=== PATIENT | female | born 1945 | race Caucasian/White ===

== ENCOUNTER 2020-01-25 19:59 | Observation (INO) | payer MEDICARE, OTHER ==
[~2020-01-25] VITALS: Ht 165.1 cm; Wt 62.1 kg
[2020-01-25 20:21] LABS: BASOPHILS % 0.6 % (0.0-1.0); EOSINOPHILS # (AUTO) 0.1 (0.0-0.4); EOSINOPHILS % 1.2 % (0.0-6.0); HEMATOCRIT 48.5 % (34.2-44.1); LYMPHOCYTES # (AUTO) 1.6 (1.0-3.2); LYMPHOCYTES % 25.3 % (18.0-39.1); MEAN CORPUSCULAR HEMOGLOBIN 30.9 pg (28-32); MEAN CORPUSCULAR VOLUME 93.6 fL (81-99); MONOCYTES # (AUTO) 0.6 (0.2-0.8); MONOCYTES % 9.5 % (4.4-11.3); NEUTROPHILS # (AUTO) 4.1 (2.1-6.9); NEUTROPHILS % 63.4 % (38.7-80.0); PLATELET COUNT 228 x10e3/uL (140-360); RED BLOOD COUNT 5.18 x10e6/uL (3.6-5.1)
[2020-01-25 20:35] LABS: ALBUMIN 4.3 g/dL (3.5-5.0); ALBUMIN/GLOBULIN RATIO 1.3 (0.8-2.0); ANION GAP 14.1 mmol/L (8-16); CREATININE, SERUM 1.18 mg/dL (0.57-1.11); POTASSIUM 4.1 mmol/L (3.5-5.1)
[2020-01-25 20:42] LABS: CREATINE KINASE MB 1.7 ng/mL (0-5.0)
--- NOTE | 2020-01-25 20:54 | Diagnostic Imaging Report ---
EXAMINATION: CHEST 2 VIEWS INDICATION: ^PALPITATIONS ^20200125 ^2029 COMPARISON: None FINDINGS: TUBES and LINES: None. LUNGS: Normal lung volumes. Nodular opacities measuring up to 8 mm in the left midlung, may represent pulmonary nodules. No additional airspace opacity or consolidation. PLEURA: No pleural effusion or pneumothorax. HEART AND MEDIASTINUM: The cardiomediastinal silhouette is unremarkable. BONES AND SOFT TISSUES: No acute osseous lesion. Soft tissues are unremarkable. UPPER ABDOMEN: No free air under the diaphragm. IMPRESSION: 1. Subcentimeter nodular opacities in the left midlung, may represent pulmonary nodules. Recommend nonemergent chest CT for further evaluation. 2. No additional cardiopulmonary abnormalities. Signed by: Dr. Toni Richardson M.D. on 01/25/2020 8:51 PM
--- NOTE | 2020-01-25 20:57 | Emergency Department Note ---
History of Present Illnes History of Present Illness Chief Complaint: General Medicine Complaints History of Present Illness This is a 74 year old female . Chief Complaint Comment 74 Y/O FEMALE PT AAOX3 REPORTS PALPITATIONS AND PAIN TO LUE SINCE APPROX [id number] TODAY, EKG PERFORMED AND GIVEN TO ER MD FOR REVIEW; RESP ARE EVEN AND UNLABORED, O2 SAT RA 99%; SKIN WARM, DRY, COLOR WNL FOR PT; 20 GAUGE IV CATH PLACED TO PTS LEFT AC, BLOOD OBTAINED FOR LAB ANALYSIS; ER MD TO TRIAGE FOR INITIAL EVAL Historian: Patient Duration (how long): day(s) Past Medical/Family History Physician Review I have reviewed the patient's past medical and family history. Any updates have been documented here. Past Medical History Recent Fever: No Clinical Suspicion of Infectio: No New/Unexplained Change in Ment: No Past Medical History: Hypertension, Chronic Back Pain, Osteoarthritis Past Surgical History: Hysterectomy, Cataract Removal Social History Smoking Cessation: Never Smoker Counseling Performed: No Alcohol Use: None Any Illegal Drug Use: No Physically hurt or threatened: No Other Any Pre-Existing Lines (PICC,: No Review of Systems Review of Systems Constitutional: Reports no symptoms EENTM: Reports no symptoms Cardiovascular: Reports as per HPI, Reports chest pain Respiratory: Reports no symptoms Gastrointestinal: Reports no symptoms Genitourinary: Reports no symptoms Musculoskeletal: Reports no symptoms Integumentary: Reports no symptoms Neurological: Reports no symptoms Psychological: Reports no symptoms Endocrine: Reports no symptoms Hematological/Lymphatic: Reports no symptoms Physical Exam Related Data Allergies: Coded Allergies: No Known Allergies (Unverified , 01/25/20) Triage Vital Signs Vital Signs Date Time Temp Pulse Resp B/P (MAP) Pulse Ox O2 Delivery O2 Flow Rate FiO2 01/25/20 20:02 98.1 80 18 133/95 99 Room Air Vital signs reviewed: Yes Physical Exam CONSTITUTIONAL Constitutional: Present well-developed, Present well-nourished HENT HENT: Present normocephalic, Present atraumatic, Present oropharynx clear/moist, Present nose normal HENT L/R: Present left ext ear normal, Present right ext ear normal EYES Eyes: Reports PERRL, Reports conjunctivae normal NECK Neck: Present ROM normal PULMONARY Pulmonary: Present effort normal, Present breath sounds normal CARDIOVASCULAR Cardiovascular: Present regular rhythm, Present heart sounds normal, Present capillary refill normal, Present normal rate GASTROINTESTINAL Abdominal: Present soft, Present nontender, Present bowel sounds normal GENITOURINARY Genitourinary: Present exam deferred SKIN Skin: Present warm, Present dry MUSCULOSKELETAL Musculoskeletal: Present ROM normal NEUROLOGICAL Neurological: Present alert, Present oriented x 3, Present no gross motor or sensory deficits PSYCHOLOGICAL Psychological: Present mood/affect normal, Present judgement normal Results Laboratory Result Diagram: 01/25/202008 Laboratory Laboratory Tests Test 01/25/20 20:09 White Blood Count 6.41 x10e3/uL (4.8-10.8) Red Blood Count 5.18 x10e6/uL (3.6-5.1) Hemoglobin 16.0 g/dL (12.0-16.0) Hematocrit 48.5 % (34.2-44.1) Mean Corpuscular Volume 93.6 fL (81-99) Mean Corpuscular Hemoglobin 30.9 pg (28-32) Mean Corpuscular Hemoglobin Concent 33.0 g/dL (31-35) Red Cell Distribution Width 12.0 % (11.7-14.4) Platelet Count 228 x10e3/uL (140-360) Neutrophils (%) (Auto) 63.4 % (38.7-80.0) Lymphocytes (%) (Auto) 25.3 % (18.0-39.1) Monocytes (%) (Auto) 9.5 % (4.4-11.3) Eosinophils (%) (Auto) 1.2 % (0.0-6.0) Basophils (%) (Auto) 0.6 % (0.0-1.0) Neutrophils # (Auto) 4.1 (2.1-6.9) Lymphocytes # (Auto) 1.6 (1.0-3.2) Monocytes # (Auto) 0.6 (0.2-0.8) Eosinophils # (Auto) 0.1 (0.0-0.4) Basophils # (Auto) 0.0 (0.0-0.1) Absolute Immature Granulocyte (auto 0 x10e3/uL (0-0.1) Lab results reviewed: Yes Imaging Imaging results reviewed: Yes Procedures 12 Lead ECG Interpretation ECG Interpretation : ECG: ECG 2 Prior ECG tracings: reviewed Rhythm: sinus rhythm Ectopy: PVC's Rate: normal QRS axis: normal ST segments normal: Yes Clinical Impression: normal ECG Assessment & Plan Medical Decision Making MDM 74-year-old female arrives the ED with atypical chest pain for several days. Patient with intermediate risk factors for ACS. Patient admitted to the hospital for serial cardiac monitoring and telemetry observation. The patient presented with chest pain of uncertain etiology. Based on their history, lab analysis, EKG (which showed no evidence of ischemia or infarction), and imaging, in addition to the patient's physical exam, I see no evidence at this time for a malignant etiology for the patient's chest pain. There is no acute evidence for pulmonary embolus, acute myocardial infarction, pneumothorax, esophageal rupture, cardiac tamponade, thoracic artery dissection, or any other emergent cardiac, pulmonary or aortic pathology at this time. [Based on the nature and long duration of the patient's pain, paucity of EKG findings, and normal cardiac enzymatic blood analysis, acute coronary syndrome is a possibility. Ratio with the following cardiac risk factors: (Age>65, CAD risk factors -- family history of CAD, hypertension, hypercholesterolemia, diabetes, known CAD as defined by >50% stenosis, aspirin use in the past 7 days, severe angina having more than 2 episodes in the past 24 hours This patient may require cardiac stress testing on an outpatient basis and arrangements for this may be made during their follow-up visit with their primary care physician. The patient understands that at this time there is no evidence for a more malignant underlying process, but the patient also understands that early in the process of an illness, an emergency department workup can be falsely reassuring. Routine discharge counseling was given to the patient and the patient understands that worsening, changing, or persistent symptoms should prompt an immediate call or follow up with their primary physician or the emergency department immediately. The importance of close follow up was also discussed with the patient. Assessment & Plan Final Impression: (1) Chest pain Depart Disposition: HOME, SELF-CARE Last Vital Signs Date Time Temp Pulse Resp B/P (MAP) Pulse Ox O2 Delivery O2 Flow Rate FiO2 01/25/20 20:02 98.1 80 18 133/95 99 Room Air Home Meds Reported Medications Simvastatin (SIMVASTATIN) 20 Mg Tablet, PO HS, EA 01/26/20 Losartan Potassium (LOSARTAN POTASSIUM) 25 Mg Tablet, 50 MG PO DAILY 01/26/20 [Genteal Gel] No Conflict Check, OU HS 01/26/20 [Systane ] No Conflict Check, 1 DROP OU PRN 01/26/20 Cyclosporine (RESTASIS) 1 Each Droperette, 1 DROP OU BID 01/26/20 Loteprednol Etabonate (LOTEMAX) 5 Ml Susp, 1 DROP OU BID, ML 01/26/20 Brimonidine Tartrate (COMBIGAN EYE DROPS) 5 Ml Drpette, 1 DROP OU DAILY 01/26/20 SABINO SINGH, Jan 25, 2020 20:53
[2020-01-25 21:08] LABS: BILIRUBIN,URINE NEGATIVE (NEGATIVE); CLARITY,URINE CLEAR (CLEAR); COLOR,URINE YELLOW (YELLOW); KETONES,URINE NEGATIVE (NEGATIVE); LEUKOCYTE ESTERASE ,URINE SMALL (NEGATIVE); NITRITE,URINE NEGATIVE (NEGATIVE); PROTEIN,URINE DIPSTICK NEGATIVE (NEGATIVE); URINE UROBILINOGEN 0.2 mg/dL (0.2 - 1)
--- OUTSIDE RECORDS SUMMARY | 2020-01-25 21:09 | XMS REPORT | Continuity of Care Document ---
Author Author [facility] Organization [facility] Address [address] [place] [phone] Phone Unavailable Care Team Providers Care Cash Processing Specialist Name Role Phone Wiliam SINGH Attcale[employer] Unavailable Problems This patient has no known problems. Allergies, Adverse Reactions, Alerts This patient has no known allergies or adverse reactions. Medications This patient has no known medications. Procedures This patient has no known procedures. Results Test Description Test Time Test Comments Results Result Comments Source CHEST 2 VIEWS 2020-01-25 20:49:00 [facility] CENTERName: ASHLEY SOLO : 1945 Sex: F [facility] [address] [place], [place] [address] Patient Name: ASHLEY SOLO MR #: [id number] : 1945 Age/Sex: 74/F Req #: [id number] [facility] Physician: Ordered by: SABINO SINGH DO Report #: [id number] Location: ER Room/Bed: Procedure: [id number] DX/CHEST 2 VIEWS Exam Date: 01/25/20 Exam Time: 2029 REPORT STATUS: Signed EXAMINATION: CHEST 2 VIEWS INDICATION: PALPITATIONS [id number] COMPARISON: None FINDINGS: TUBES and LINES: None. LUNGS: Normal lung volumes. Nodular opacities measuring up to 8 mm in the left midlung, may represent pulmonary nodules. No additional airspace opacity or consolidation. PLEURA: No pleural effusion or pneumothorax. HEART AND MEDIASTINUM: The cardiomediastinal silhouette is unremarkable. BONES AND SOFT TISSUES: No acute osseous lesion. Soft tissues are unremarkable. UPPER ABDOMEN: No free air under the diaphragm. IMPRESSION: 1. Subcentimeter nodular opacities in the left midlung, may represent pulmonary nodules. Recommend nonemergent chest CT for further evaluation. 2. No additional cardiopulmonary abnormalities. Signed by: Dr. Jacky Richardson M.D. on 01/25/2020 8:51 PM Dictated By: JACKY RICHARDSON MD 50 Transcribed By: CHELA on 01/25/202050 COPY TO: SABINO SINGH DO
[2020-01-25 21:22] LABS: WBC,URINE (MAN) 0-5 /HPF (0-5)
--- OUTSIDE RECORDS SUMMARY | 2020-01-25 22:02 | XMS REPORT | Continuity of Care Document ---
Author Author [facility] Organization [facility] Address [address] [place] [phone] Phone Unavailable Care Team Providers Care Band Maker Name Role Phone Wiliam SINGH Attcale[employer] Unavailable Problems This patient has no known problems. Allergies, Adverse Reactions, Alerts This patient has no known allergies or adverse reactions. Medications This patient has no known medications. Procedures This patient has no known procedures. Results Test Description Test Time Test Comments Results Result Comments Source CHEST 2 VIEWS 2020-01-25 20:49:00 [facility] CENTER[facility]: ASHLEY SOLO : 1945 Sex: F [facility] [address] [place], [place] [address] Patient Name: ASHLEY SOLO MR #: [id number] : 1945 Age/Sex: 74/F Req #: [id number] [facility] Physician: Ordered by: SABINO SINGH DO Report #: [id number] Location: ER Room/Bed: Procedure: [id number] DX/CHEST 2 VIEWS Exam Date: 01/25/20 Exam [...]
[2020-01-26] VITALS (7 sets, daily range): BP systolic 121–148; BP diastolic 63–79
[2020-01-26] MEDS ORDERED: SYSTANE OU (02:05)
[2020-01-26] MEDS ORDERED: COMBIGAN EYE DRO5 ML OU (02:05)
[2020-01-26] MEDS ORDERED: LOSARTAN POTASS25 MG PO (02:05)
[2020-01-26] MEDS ORDERED: RESTASIS1 EACH OU (02:05)
[2020-01-26] MEDS ORDERED: SIMVASTATIN20 MG PO (02:05)
[2020-01-26] MEDS ORDERED: LOTEMAX5 ML OU (02:05)
[2020-01-26] MEDS ORDERED: GENTEAL GEL OU (02:05)
--- NOTE | 2020-01-26 06:55 | NUR ---
REPORT GIVEN TO DAYSHIFT NURSE. ALERT AND ORIENTED. RESTING IN BED. NO SIGNS OF IV INFILTRATION. BED LOCKED AND LOW POSITION. CALL LIGHT WITHIN REACH.
--- NOTE | 2020-01-26 07:00 | NUR ---
RECEIVED PATIENT RESTING IN BED NO S/S OF DISTRESS. BED LOW, WHEELS LOCKED, SIDE RAILS X2. CALL LIGHT IN REACH WILL CONTINUE TO MONITOR PATIENT.
--- NOTE | 2020-01-26 16:38 | NUR ---
PATIENT LEFT AMA. REMOVED PATIENTS IV CATHETER TIP INTACT AND PRESSURE DRESSING APPLIED. AMA FORMS SIGNED BY PATIENT AND EXPLAINED HEALTH RISKS. NO S/S OF DISTRESS LEAVING FACILITY.
== END 2020-01-26 16:38 | disposition left against medical advice (07) ==
LOC: ER 21:07 → ERHOLD 21:52 → MED/SURG 23:24
PROVIDERS: ADMIT Internal Medicine; ATTEND Internal Medicine
DX: R07.9 Chest pain, unspecified (principal); Z11.59 Encounter for screening for other viral diseases
CPT/HCPCS: 36415; 71046; 80053; 81001; 82550; 82553; 84484; 85025; 93005; 99284; G0378 ×2; U0002